=== PATIENT | male | born 1935 | race Caucasian/White ===

== ENCOUNTER 2019-03-15 09:34 | Outpatient (CLI) | payer MEDICARE ==
--- NOTE | 2019-03-15 11:28 | RAD ---
RIGHT FEMUR 2 VIEWS: Date: 03/15/19 HISTORY: Pain in right leg. COMPARISON: None. FINDINGS: Surgical clips along the right hemipelvis. There are ring osteophytes at the right femoral head/neck junction. No acute displaced fracture is appreciated. Mild medial and lateral compartment narrowing of the knee. Mild enthesopathic change of the greater t rochanter. Right obturator ring is intact. IMPRESSION: 1. Mild degenerative change of the right hip. 2. Moderate degenerative changes of the medial and lateral compartments of the right knee. 3. Mild enthesopathic changes of the greater trochanter. POS: [facility]
== END 2019-03-15 09:35 | disposition home or self-care (01) ==
LOC: BICRAD 09:34
PROVIDERS: ATTEND Specialist
DX: M79.604 Pain in right leg (principal); M25.551 Pain in right hip; M16.11 Unilateral primary osteoarthritis, right hip; M17.11 Unilateral primary osteoarthritis, right knee

== ENCOUNTER 2019-11-14 10:08 | Inpatient (IN) | payer MEDICARE ==
[2019-11-14 10:41] LABS: #Lymphocytes 0.7 thou/uL (1.20-3.40); #Monocytes 0.5 thou/uL (0.11-0.59); #Neutrophils 4.7 thou/uL (1.40-6.50); %Basophils 0.3 % (0.0-1.0); %Eosinophils 0.8 % (0.0-10.0); %Lymphocytes 12.4 % (21.0-51.0); %Monocytes 8.5 % (0.0-10.0); %Neutrophils 78.1 % (42.0-75.0); Hemoglobin 12.7 g/dL (14.0-18.0); Mean Corpuscular HGB CONC 32.2 g/dL (32.0-36.0); Mean Corpuscular Hemoglobin 29.4 pg (27.0-31.0); Mean Corpuscular Volume 91.3 fL (78.0-98.0); Mean Platelet Volume 6.4 fL (7.4-10.4); Platelet Count 265 thou/uL (130-400); RBC Distribution Width 11.7 % (11.5-14.5); Red Blood Cell (RBC) Count 4.32 mill/uL (4.70-6.10)
[2019-11-14 11:09] LABS: ALT (SGPT) 11 U/L (8-55); AST (SGOT) 17 U/L (5-34); Albumin 4.2 g/dL (3.4-4.8); Alkaline Phosphatase 48 U/L (40-110); Anion Gap 13 mmol/L (10-20); BUN (Urea Nitrogen) 9 mg/dL (8.4-25.7); Bilirubin, Total 0.7 mg/dL (0.2-1.2); Calc. Creatinine Clearance 0 mL/min (70-130); Calcium 9.4 mg/dL (7.8-10.44); Carbon Dioxide 26 mmol/L (23-31); Chloride 97 mmol/L (98-107); Estimated GFR-MDRD 75; Globulin 2.6 g/dL (2.4-3.5); Glucose 103 mg/dL (83-110); Potassium 4.2 mmol/L (3.5-5.1); Protein, Total 6.8 g/dL (5.8-8.1); Sodium 132 mmol/L (136-145)
--- NOTE | 2019-11-14 14:59 | RAD ---
CHEST 1 VIEW: HISTORY: Syncope and collapse. COMPARISON: Radiograph 04/21/2017. FINDINGS: Pulmonary arteries are mildly distended. The transverse aorta has dense calcifications. No confluen t airspace consolidation, pneumothorax, or effusion. Moderate degenerative change of both shoulders. IMPRESSION: No acute intrathoracic abnormality. POS: HOME
[2019-11-14 18:44] VITALS: BMI 24.9
[2019-11-14] MEDS ORDERED: Ondansetron PF 4 MG/2 ML Vial SLOW IVP PRN (18:52)
[2019-11-14] MEDS: Amlodipine 5 MG TAB PO SCH (21:23)
[2019-11-14] MEDS: rOPINIRole HCl 1 MG TAB PO SCH (21:23)
[2019-11-14] MEDS: Isosorbide Mononitrate (ER) 30 MG TAB PO SCH (21:23)
[2019-11-14] MEDS: cloNIDine 0.2 MG TAB PO SCH (21:23)
[2019-11-14 23:16] LABS: #Basophils 0.1 thou/uL (0.0-0.2); #Eosinphils 0.1 thou/uL (0.0-0.7); #Lymphocytes 2.3 thou/uL (1.20-3.40); #Monocytes 1.6 thou/uL (0.11-0.59); #Neutrophils 7.6 thou/uL (1.40-6.50); %Basophils 0.6 % (0.0-1.0); %Eosinophils 0.7 % (0.0-10.0); %Lymphocytes 19.3 % (21.0-51.0); %Monocytes 13.9 % (0.0-10.0); %Neutrophils 65.5 % (42.0-75.0); Hemoglobin 13.4 g/dL (14.0-18.0); Mean Corpuscular HGB CONC 32.3 g/dL (32.0-36.0); Mean Corpuscular Hemoglobin 29.5 pg (27.0-31.0); Mean Corpuscular Volume 91.2 fL (78.0-98.0); Mean Platelet Volume 6.4 fL (7.4-10.4); Platelet Count 300 thou/uL (130-400); RBC Distribution Width 11.8 % (11.5-14.5); Red Blood Cell (RBC) Count 4.53 mill/uL (4.70-6.10); White Blood Cell (WBC) Count 11.7 thou/uL (4.8-10.8)
[2019-11-14 23:29] LABS: Lactic Acid 1.9 mmol/L (0.5-2.2)
[2019-11-14 23:30] LABS: ALT (SGPT) 10 U/L (8-55); AST (SGOT) 15 U/L (5-34); Albumin 4.3 g/dL (3.4-4.8); Alkaline Phosphatase 49 U/L (40-110); Anion Gap 15 mmol/L (10-20); BUN (Urea Nitrogen) 12 mg/dL (8.4-25.7); Bilirubin, Total 0.4 mg/dL (0.2-1.2); Calc. Creatinine Clearance 52 mL/min (70-130); Calcium 9.4 mg/dL (7.8-10.44); Carbon Dioxide 23 mmol/L (23-31); Chloride 99 mmol/L (98-107); Estimated GFR-MDRD 56; Globulin 2.7 g/dL (2.4-3.5); Glucose 123 mg/dL (83-110); Magnesium 2.1 mg/dL (1.6-2.6); Phosphorus 3.4 mg/dL (2.3-4.7); Sodium 133 mmol/L (136-145)
--- NOTE | 2019-11-15 00:02 | HP ---
CHIEF COMPLAINT: Syncope. HISTORY OF PRESENT ILLNESS: The patient is an 84-year-old gentleman, who was at the ear doctor, getting his ears examined when the physician noted he was not responsive. He actually lost control of his bladder. EMS was called. When they arrived, his pulse was noted to be in the 30s. They gave him some atropine and by the time he arrived in the ER at [facility], his pulse rate was under the 70s and has been elevated ever since. He does not recall the details as much as he remembers getting lightheaded while the physician was examining him. This is one of many syncopal episodes this gentleman has had over the last several years. It has been a common occurrence and he has been approached about having a possible pacemaker in the past, which he is adamantly opposed to. He is in the ER at [place] now, currently in no acute distress, and understands that he will be watched overnight for further assessment of his heart rate and cardiology consultation will be obtained as well as an echocardiogram and serial reassessments and orthostatic vital signs. PAST MEDICAL HISTORY: As mentioned above is significant for multiple hospitalizations for previous syncopal episodes. He also has severe gastroesophageal reflux disease, hypertension, chronic dizziness, history of obstructive sleep apnea. He is very hard of hearing. History of coronary artery disease with stent, restless legs syndrome, depression, hypogonadism. PAST SURGICAL HISTORY: Includes repair of inguinal hernia, tonsillectomy, hemorrhoidectomy, prostate cancer in 2005, and severe head trauma with a horse in 1962. ALLERGIES: NONE. SOCIAL HISTORY: He is . Has not smoked or drinks alcohol. He is retired. FAMILY HISTORY: Noncontributory. MEDICATIONS ON ADMISSION: Include: 1. Amlodipine recently switched from 5 mg b.i.d. to 10 mg. 2. Aspirin 81 mg daily. 3. Clonidine 0.1 mg b.i.d. 4. Imdur 30 mg at bedtime. 5. Losartan 100 mg p.o. daily. 6. Pantoprazole 20 mg daily. 7. Ropinirole 1 mg at bedtime. 8. He is also on sertraline 25 mg at bedtime. 9. At the time of admission on bisoprolol hydrochlorothiazide 5/6.25 mg daily. 10. He also takes testosterone 1% gel four pumps daily. REVIEW OF SYSTEMS: At the time of admission: CONSTITUTIONAL: Denies any recent fever, chills, or weight loss. HEENT: He has had trouble getting his ears cleaned, which is why he was at the ear physician, but has had no drainage or discharge or pain from these. CARDIOVASCULAR: Denies chest pain or palpitations. PULMONARY: Denies shortness of breath or cough. GASTROINTESTINAL: Denies any nausea, vomiting, or diarrhea. : Denies any dysuria or blood in urine or stool. ENDOCRINE: Denies any polydipsia, polyphagia, or intolerance to temperatures hot or cold. MUSCULOSKELETAL: Has diffuse arthralgias, but no specific joints at this time are painful. SKIN: No new rashes or lesions. NEUROLOGICAL: No trouble with mentation, although he is very hard of hearing. PHYSICAL EXAMINATION: VITAL SIGNS: At the time of admission, blood pressure 167/100, pulse 87, respirations 16, temperature is 98.3. Pain scale 0. GENERAL: This is a well-developed, well-nourished, elderly male, alert, oriented, cooperative. HEENT: Normocephalic, atraumatic. Pupils are equal, round, and reactive to light with arcus senilis bilaterally. TMs, nares, and pharynx are clear. NECK: Supple. Trachea midline. No bruits. CHEST: Clear to auscultation. HEART: Regular rate and rhythm without murmur. ABDOMEN: Scaphoid and nontender without hepatosplenomegaly. : Deferred. EXTREMITIES: Without clubbing, cyanosis, or edema. Symmetrical muscular wasting in upper and lower extremities. Normal range of motion of all upper and lower extremities. SKIN: No acute rashes or lesions. NEUROLOGIC: Cranial nerves except for cranial nerve 8 are intact. Gait and cerebellar function intact. Sensory exam is grossly intact. Mental status is at baseline and nonfocal. LABORATORY DATA: Lab work thus far shows WBC 6, hemoglobin 12.7, hematocrit 39.4 with platelets of 265. Chest x-ray shows no acute intrathoracic disease. Sodium 132, potassium 4.2, chloride 97, CO2 of 26, BUN 9, creatinine 0.95 with a GFR 75 , glucose 103,. Liver functions unremarkable. Troponins unremarkable. ASSESSMENT: 1. Syncopal episode. Etiologies include possible bradycardia. 2. Hypertension. 3. Severe anxiety disorder. 4. Presbycusis. PLAN: Plan will be observing his orthostatic vital signs on telemetry. Cardiology consultation done. We will also get echocardiogram and serially re-evaluate him. Job ID: [id number] MTDD
[2019-11-15 03:29] LABS: #Lymphocytes 0.9 thou/uL (1.20-3.40); #Monocytes 0.8 thou/uL (0.11-0.59); #Neutrophils 6.4 thou/uL (1.40-6.50); %Basophils 0.1 % (0.0-1.0); %Eosinophils 0.2 % (0.0-10.0); %Lymphocytes 11.2 % (21.0-51.0); %Monocytes 9.7 % (0.0-10.0); %Neutrophils 78.9 % (42.0-75.0); Hemoglobin 12.6 g/dL (14.0-18.0); Mean Corpuscular HGB CONC 33.1 g/dL (32.0-36.0); Mean Corpuscular Hemoglobin 30.4 pg (27.0-31.0); Mean Platelet Volume 6.7 fL (7.4-10.4); Platelet Count 268 thou/uL (130-400); RBC Distribution Width 11.7 % (11.5-14.5); Red Blood Cell (RBC) Count 4.15 mill/uL (4.70-6.10); White Blood Cell (WBC) Count 8.2 thou/uL (4.8-10.8)
[2019-11-15 03:46] LABS: Anion Gap 13 mmol/L (10-20); BUN (Urea Nitrogen) 12 mg/dL (8.4-25.7); Calc. Creatinine Clearance 64 mL/min (70-130); Calcium 8.8 mg/dL (7.8-10.44); Carbon Dioxide 25 mmol/L (23-31); Chloride 99 mmol/L (98-107); Estimated GFR-MDRD 72; Glucose 113 mg/dL (83-110); Potassium 4.2 mmol/L (3.5-5.1); Sodium 133 mmol/L (136-145)
[2019-11-15] MEDS: Hydrochlorothiazide 25 MG TAB PO SCH (08:55)
[2019-11-15] MEDS: Aspirin Chewable 81 MG TAB PO SCH (08:55)
[2019-11-15] MEDS: Losartan 25 MG TAB PO SCH (08:55)
[2019-11-15] MEDS: Amlodipine 5 MG TAB PO SCH ×2 (08:55→20:17)
[2019-11-15] MEDS: Sodium Chloride 0.9% 1,000 ML IV SCH ×2 (08:55→20:17)
[2019-11-15] MEDS: cloNIDine 0.2 MG TAB PO SCH ×2 (08:56→20:17)
[2019-11-15] MEDS: Isosorbide Mononitrate (ER) 30 MG TAB PO SCH (20:17)
[2019-11-15] MEDS: rOPINIRole HCl 1 MG TAB PO SCH (20:17)
--- NOTE | 2019-11-16 00:38 | CON ---
DATE OF CONSULTATION: HISTORY: Shahid Berkowitz is an 84-year-old white male with previous history of coronary stent placement and multiple episodes of syncope who is usually a patient of Dr. Steward. He was hospitalized here in 2017, and was seen by Dr. Gallegos, however, apparently the family requested that I see him while he was at [place]. Yesterday, he was at the ENT doctor and had a syncopal episode and was unresponsive. When paramedics arrived, he had heart rates in the 30s. He was given atropine and transferred here. Also last night, he had an episode of bradycardia with heart rates in the 30s. He denies any chest discomfort or shortness of breath. He states he has frequent lightheaded spells at home, but is uncertain if he ever passes out. PAST MEDICAL HISTORY: Coronary artery disease, hypertension, GERD, obstructive sleep apnea, hard of hearing, depression. PAST SURGICAL HISTORY: Coronary artery stents, inguinal herniorrhaphy, tonsillectomy, hemorrhoidectomy, prostate cancer. He had a head trauma from a horse in 1962. MEDICATIONS: Amlodipine 10 mg daily, Diflucan 100 mg daily, ibuprofen 600 mg q.6 hours p.r.n., losartan 100 daily, Protonix 20 daily, and Bactrim 1 b.i.d. ALLERGIES: NONE. SOCIAL HISTORY: He does not smoke or drink. REVIEW OF SYSTEMS: Unremarkable. PHYSICAL EXAMINATION: VITAL SIGNS: Blood pressure 136/59, pulse 57. HEENT: PERRL. NECK: Supple. CHEST: Clear. CARDIAC: S1 and S2 normal without any S3, S4, or murmurs. Carotid upstroke was normal with bilateral carotid artery bruits. ABDOMEN: Normal bowel sounds without tenderness or organomegaly. EXTREMITIES: Reveal no clubbing, cyanosis, or edema. NEUROLOGICAL: Grossly intact except for hard of hearing. LABORATORY DATA: EKG revealed sinus rhythm with first-degree AV block. Echocardiogram revealed ejection fraction of 60% to 65% with evidence of diastolic dysfunction, mild mitral regurgitation, mild aortic regurgitation, and trace tricuspid regurgitation. Hemoglobin 12.6, hematocrit 38.2, white count 8200, platelets 268,000. Sodium 133, potassium 4.2, chloride 99, carbon dioxide 25, BUN 12, creatinine 0.99. Troponin I is normal x2. TSH is normal. Cortisol is normal. IMPRESSION: 1. Multiple syncopal episodes secondary to sinus bradycardia. He has documented heart rate with paramedics apparently at 30 per minute and also here in the hospital at 30 per minute. 2. Bilateral carotid artery bruits. In looking at the computer, I do not see that this has ever been evaluated. Certainly, this may also be contributing to his syncope. 3. Coronary artery disease, status post stent placement. 4. Hypertension. 5. Gastroesophageal reflux disease. 6. Obstructive sleep apnea. 7. Hard of hearing. 8. Anxiety. PLAN: The situation was discussed with the patient. Carotid Doppler will be obtained to evaluate his bruits. He certainly should have a pacemaker inserted; however , I am not certain that he or his wish to pursue that in this institution. If not, he needs to be either transferred or an early appointment with his usual chief accountant. Job ID: [id number] MTDD
[2019-11-16] MEDS: Sodium Chloride 0.9% 1,000 ML IV SCH ×2 (04:16→08:25)
[2019-11-16] MEDS: cloNIDine 0.2 MG TAB PO SCH (07:43)
--- NOTE | 2019-11-16 08:17 | ULT ---
Carotid duplex sonogram HISTORY: Syncope. Bilateral bruits. Vascular disease. FINDINGS: Right: Scattered mild plaque. Color and spectral Doppler evaluation, peak systolic velocity of 89 cm/ s, and IC to CC ratio of 1.1 suggest no hemodynamically significant stenosis within the extracranial right ICA. Antegrade flow within the vertebral artery. Left: Mild plaque. Echogenic stent within the ICA is patent. Color and spectral Doppler evaluation, p eak systolic velocity of 101 cm/s, and IC to CC ratio of 1.2 suggest no hemodynamically significant stenosis within the extracranial left ICA. Antegrade flow within the vertebral artery. IMPRESSION : Atherosclerosis. Left ICA stent. No sonographic evidence of significant extracranial ICA stenosis.
[2019-11-16] MEDS: Amlodipine 5 MG TAB PO SCH (08:24)
[2019-11-16] MEDS: Losartan 25 MG TAB PO SCH (08:24)
[2019-11-16 08:25] VITALS: BP 148/64
[2019-11-16] MEDS: Hydrochlorothiazide 25 MG TAB PO SCH (08:25)
[2019-11-16] MEDS: Aspirin Chewable 81 MG TAB PO SCH (08:25)
[2019-11-16 15:20] VITALS: TEMP 97.4
--- NOTE | 2019-11-17 10:44 | DIS ---
DATE OF ADMISSION: 11/15/2019 DATE OF DISCHARGE: 11/16/2019 DATE OF TRANSFER TO [facility]: 11/16/2019. CHIEF COMPLAINT ON ADMISSION: Syncope due to bradycardia. History and physical have been dictated. I will resume from there. HOSPITAL COURSE: The patient was placed in an IMCU monitored bed, where supportive measures were maintained. Over the next 24 hours, he had a repeat episode of bradycardia, for which he passed out. He was easily revived with symptomatic treatment, but then proceeded to vomit afterwards, which was his typical post syncopal procedure. Thereafter, he was fine. Dr. De Souza was called about this shortly after it occurred, but was told he did not need to come to the [facility] because the patient is in his usual state of good health. His viral load was back into the 60s and his services were not needed. Over the first 24 hours in the hospital, Dr. De Souza had ordered an echocardiogram and since when it had not been performed in quite some time, his ejection fraction was from 65% to 69%. He had some mild diastolic dysfunction. Otherwise, his heart looked good. The patient was noted to have carotid bruits when Dr. Robbins was consulted and a carotid ultrasound was ordered, which failed to show any significant carotid stenosis. When it was evident that a pacemaker was needed, Dr. Robbins and Dr. De Souza were confirmed with the patient, who adamantly refused to have a pacemaker placed at this institution and so arrangements were made to transfer him to see [facility], where his biostatistics manager, Dr. Joseph Steward was contacted and accepted him in transfer. He will possibly be able to talk the patient into a pacemaker, should he agree that would be advantageous. The patient is transferred to [facility] in stable condition. His diagnoses at the time of transfer: 1. Syncope due to bradycardia. 2. Sick sinus syndrome. 3. Hypertension. 4. Generalized anxiety disorder. 5. Severe presbycusis. The patient's medications will be maintained the same from one institution to the next. The time required to prepare the pt for transfer including reconciliation of his medication came to 30 minutes. He is to follow up with Dr. De Souza in 1 week after discharge from [facility]. Job ID: [id number] [facility]
--- NOTE | 2019-11-18 13:01 | EKG ---
Test Reason : Blood Pressure : / mmHG Vent. Rate : 068 BPM Atrial Rate : 068 BPM P-R Int : 246 ms QRS Dur : 102 ms QT Int : 390 ms P-R-T Axes : 056 -43 056 degrees QTc Int : 414 ms Sinus rhythm with sinus arrhythmia with 1st degree A-V block Left axis deviation Moderate voltage criteria for LVH, may be normal variant Abnormal ECG Confirmed by NISHI SANCHEZ DO ([id number]), film and video editor JOSE SANDOVAL ([id number]) on 11/18/2019 1:00:53 PM Referred By: Confirmed By:NISHI SANCHEZ DO
== END 2019-11-16 17:35 | disposition short-term general hospital (02) | DRG 310 ==
LOC: ERS 10:08 → ERHOLD 15:06 → 2SE 18:33 → IMCU/EMU 23:21 → OBSVTOIN 11-15 18:40
PROVIDERS: ADMIT Specialist; ATTEND Specialist
DX: R00.1 Bradycardia, unspecified (principal); K21.9 Gastro-esophageal reflux disease without esophagitis; I10 Essential (primary) hypertension; I25.10 Atherosclerotic heart disease of native coronary artery without angina pectoris; G47.33 Obstructive sleep apnea (adult) (pediatric); G25.81 Restless legs syndrome; F32.9 Major depressive disorder, single episode, unspecified; H91.10 Presbycusis, unspecified ear; R09.89 Other specified symptoms and signs involving the circulatory and respiratory systems; E29.1 Testicular hypofunction; Z79.82 Long term (current) use of aspirin; Z79.899 Other long term (current) drug therapy; Z95.5 Presence of coronary angioplasty implant and graft
CPT/HCPCS: 36415; 36416; 71045; 80048; 80053; 82533; 83605; 83735; 84100; 84443; 84484; 85025; 93005; 93306; 93880; J2405

== ENCOUNTER 2019-12-08 08:11 | Outpatient (CLI) | payer MEDICARE ==
--- NOTE | 2019-12-08 08:46 | ULT ---
EXAM: US Thyroid STANDARD PROVIDED CLINICAL HISTORY: Thyroid nodule. COMPARISON: None FINDINGS: Right lobe of the thyroid gland measures 4.1 cm x 1.1 cm x 2 cm with the left lobe measuring 4.4 cm x 1.2 cm x 2 cm. The thyroid isthmus measures 0.23 cm in thickness. There is a 9 mm heterogeneous but predominantly hypoechoic nodule with circumscribed margins seen in the midportion left lobe of the thyroid gland with a single punctate echogenic focus seen. No additional nodule is seen in either lobe of the thyroid gland. IMPRESSION: TI RADS level 5-highly suspicious nodule left lobe thyroid gland. According to ACR guidelines, and ba sed on size criteria, follow-up evaluation is recommended in one year.
== END 2019-12-08 08:12 | disposition home or self-care (01) ==
LOC: BICULT 08:11
PROVIDERS: ATTEND Specialist
DX: E04.1 Nontoxic single thyroid nodule (principal)
CPT/HCPCS: 76536